=== PATIENT | female | born 1955 | race Two or more races ===

== ENCOUNTER 2018-09-04 17:06 | Emergency (ER) | payer OTHER ==
[~2018-09-04] VITALS: Ht 154.9 cm; Wt 59.0 kg
[2018-09-04 18:17] LABS: Basophils # (auto) 0.1 uL; Basophils % (auto) 0.8 % (0.0-2.0); Eosinophils # (auto) 0.3 uL; Eosinophils % (auto) 2.4 % (0.0-7.0); Hemoglobin 14.1 g/dL (12.2-16.2); Lymphocytes # (auto) 2.1 uL; Lymphocytes % (auto) 17.6 % (10.0-50.0); Mean Corpuscular Hemoglobin 28.9 pg (28.0-32.0); Mean Corpuscular Hgb Conc. 33.5 g/dL (32.0-36.0); Mean Corpuscular Volume 86.3 fL (80.0-100.0); Monocytes # (auto) 0.7 uL; Monocytes % (auto) 5.7 % (0.0-12.0); Neutrophils # (auto) 8.7 uL; Neutrophils % (auto) 73.5 % (37.0-80.0); Nucleated Red Blood Cells % 0.1 %; Platelet Count (auto) 338 10^3/uL (140-450); Red Blood Cells 4.87 10^6/uL (4.0-5.20); Red Cell Distribution Width 14.4 % (11.8-14.3); White Blood Cell 11.8 10^3/uL (4.4-10.8)
[2018-09-04 18:32] LABS: Alanine Aminotransferase 27 U/L (13-56); Albumin 3.7 g/dL (3.4-5.0); Anion Gap 8 (5-15); Aspartate Aminotransferase 21 U/L (15-37); BUN/Creatinine Ratio 18.2; Blood Urea Nitrogen 18 mg/dL (7-18); Calcium 8.6 mg/dL (8.5-10.1); Carbon Dioxide 27 mmol/L (21-32); Chloride 98 mmol/L (98-107); GFR African American 73 mL/min; GFR Non-African American 61 mL/min; Glucose 165 mg/dL (74-106); Magnesium 2.7 mg/dL (1.6-2.6); Potassium 4.4 mmol/L (3.5-5.1); Sodium 133 mmol/L (136-145)
[2018-09-04 18:36] LABS: Alkaline Phosphatase 123 U/L (45-117); Bilirubin, Total 0.3 mg/dL (0.2-1.0); Total Protein 7.8 g/dL (6.4-8.2)
[2018-09-04] MEDS ORDERED: ASPirin 81 mg TAB PO ONE (18:45)
[2018-09-04 19:00] VITALS: BP 124/70
[2018-09-04] MEDS ORDERED: SODIUM CHLORIDE 0.9% 1,000 ML IV ONE (20:15)
== END 2018-09-04 20:42 | disposition home or self-care (01) ==
LOC: EDBD 17:06 → ER 17:09
DX: R07.89 Other chest pain (principal); R42 Dizziness and giddiness; M54.2 Cervicalgia; I10 Essential (primary) hypertension; F17.210 Nicotine dependence, cigarettes, uncomplicated
CPT/HCPCS: 36415; 71046; 80053; 83735; 84484; 85025; 93005; 99284; J7030